=== PATIENT | female | born 1990 | race Caucasian/White ===

== ENCOUNTER 2021-10-22 08:30 | Inpatient (IN) | payer BC ==
[2021-10-23 09:34] VITALS: BMI 50.6
[2021-10-26] MEDS ORDERED: Scopolamine 1.5 mg/72 hour Patch ONE (12:33)
[2021-10-26] MEDS ORDERED: Enoxaparin Sodium 40 MG/0.4 ML SYRINGE ONE (12:35)
[2021-10-26] MEDS ORDERED: Midazolam HCl 2 mg/2 ml Vial ONE (12:35)
[2021-10-26] MEDS ORDERED: Bupivacaine 0.25% 10 ML VIAL ONE (12:44)
[2021-10-26] MEDS ORDERED: Lidocaine 1% w/Epinephrine 1:100K 20 ML VIAL ONE (12:44)
[2021-10-26] MEDS ORDERED: fentaNYL Citrate/PF 100 MCG/2 ML SYRINGE ONE (12:45)
[2021-10-26] MEDS ORDERED: SUGAMMADEX SODIUM 200 MG/2 ML VIAL ONE (12:45)
[2021-10-26] MEDS ORDERED: Sodium Chloride 0.9% 100 ML ONE (12:50)
[2021-10-26] MEDS ORDERED: cefOXitin 2 GM VIAL ONE (12:50)
[2021-10-26] MEDS ORDERED: Ondansetron PF 4 MG/2 ML Vial ONE ×2 (12:57→14:48)
[2021-10-26] MEDS ORDERED: Rocuronium Bromide 10 MG/ML (10ML VIAL) ONE (12:57)
[2021-10-26] MEDS ORDERED: PROPOFOL 200 MG/20 ML VIAL ONE (12:57)
[2021-10-26] MEDS ORDERED: Dexamethasone 20 MG/5 ML VIAL ONE (12:57)
[2021-10-26] MEDS ORDERED: Lidocaine 1% PF 5 ML VIAL ONE (12:57)
[2021-10-26] MEDS ORDERED: Ketorolac Tromethamine 30 MG/ML VIAL ONE (12:57)
[2021-10-26] MEDS ORDERED: Dextrose 50% Abboject 50 ML SYRINGE SLOW IVP PRN (14:27)
[2021-10-26] MEDS ORDERED: diphenhydrAMINE 50 MG/ML VIAL IVP PRN (14:27)
[2021-10-26] MEDS ORDERED: Morphine 2 MG/ML VIAL SLOW IVP PRN (14:27)
[2021-10-26] MEDS ORDERED: Dextrose 5% in Water 1,000 ML IV PRN (14:27)
[2021-10-26] MEDS ORDERED: Promethazine HCl 25 MG/ML VIAL IM PRN ×2 (14:27→14:42)
[2021-10-26] MEDS ORDERED: hydrALAZINE 20 MG/ML VIAL SLOW IVP PRN (14:27)
[2021-10-26] MEDS ORDERED: HYDROmorphone 2 MG/ML VIAL SLOW IVP PRN (14:42)
[2021-10-26] MEDS ORDERED: Promethazine HCl 25 MG/ML VIAL IVPB PRN (14:42)
[2021-10-26] MEDS ORDERED: Meperidine HCl/PF 25 MG/ML VIAL SLOW IVP PRN (14:42)
[2021-10-26] MEDS ORDERED: Ondansetron HCl/PF 4 MG/2 ML Vial IVP PRN (14:42)
[2021-10-26] MEDS ORDERED: Fentanyl 100 MCG/2 ML VIAL ONE ×2 (14:46→15:49)
[2021-10-26] MEDS ORDERED: Promethazine HCl 25 MG/ML VIAL ONE (15:01)
[2021-10-26] MEDS ORDERED: HYDROmorphone 0.5 MG/0.5 ML SYRINGE ONE ×3 (15:07→15:35)
[2021-10-26] MEDS ORDERED: Metoclopramide HCl 10 MG/2 ML VIAL ONE (15:14)
[2021-10-26] MEDS: Ketorolac Tromethamine 30 MG/ML VIAL IVP SCH ×2 (17:24→23:06)
[2021-10-26] MEDS: D5 1/2 NS w/20 mEq KCL 1,000 ML IV SCH (17:26)
[2021-10-26] MEDS: Ondansetron PF 4 MG/2 ML Vial IVP PRN (17:28)
[2021-10-26] MEDS: Hydrocodone-Acetamin 15 ML UDCUP PO PRN ×2 (18:42→20:23)
[2021-10-27] MEDS: D5 1/2 NS w/20 mEq KCL 1,000 ML IV SCH ×2 (00:25→06:53)
[2021-10-27] MEDS: Hydrocodone-Acetamin 15 ML UDCUP PO PRN ×2 (04:34→08:26)
[2021-10-27] MEDS: Ondansetron PF 4 MG/2 ML Vial IVP PRN (04:41)
[2021-10-27 05:59] LABS: #Lymphocytes 1.5 thou/uL (1.20-3.40); #Neutrophils 15.6 thou/uL (1.40-6.50); %Basophils 0.1 % (0.0-1.0); %Lymphocytes 8.2 % (21.0-51.0); %Monocytes 5.4 % (0.0-10.0); %Neutrophils 86.3 % (42.0-75.0); Hemoglobin 13.4 g/dL (12.0-16.0); Mean Corpuscular HGB CONC 32.9 g/dL (32.0-36.0); Mean Corpuscular Hemoglobin 29.1 pg (27.0-31.0); Mean Corpuscular Volume 88.3 fL (78.0-98.0); Mean Platelet Volume 7.8 fL (7.4-10.4); Platelet Count 321 thou/uL (130-400); RBC Distribution Width 11.6 % (11.5-14.5); Red Blood Cell (RBC) Count 4.62 mill/uL (4.20-5.40); White Blood Cell (WBC) Count 18.1 thou/uL (4.8-10.8)
[2021-10-27] MEDS: Ketorolac Tromethamine 30 MG/ML VIAL IVP SCH ×2 (06:02→10:54)
[2021-10-27 06:25] LABS: Anion Gap 13 mmol/L (10-20); BUN (Urea Nitrogen) 9 mg/dL (7.0-18.7); Calc. Creatinine Clearance 235 mL/min (70-130); Calcium 8.6 mg/dL (7.8-10.44); Carbon Dioxide 20 mmol/L (22-29); Chloride 106 mmol/L (98-107); Glucose 124 mg/dL (70-105); Potassium 4.1 mmol/L (3.5-5.1); Sodium 135 mmol/L (136-145)
[2021-10-27] MEDS ORDERED: Enoxaparin Sodium 40 MG/0.4 ML SYRINGE SC SCH (09:00)
[2021-10-27] MEDS ORDERED: Pantoprazole 40 MG VIAL IVP SCH (09:00)
[2021-10-27 12:53] VITALS: BP 120/83; TEMP 98.2
== END 2021-10-27 12:59 | disposition home or self-care (01) | DRG 621 ==
LOC: SURG A 10-26 11:06 → SURG B 10-26 16:41
PROVIDERS: ADMIT Surgery; ATTEND Surgery
PROC: 0DB64Z3 Excision of Stomach, Percutaneous Endoscopic Approach, Vertical (ICD-10-PCS; principal; 2021-10-26)
PROC: 8E0W4CZ Robotic Assisted Procedure of Trunk Region, Percutaneous Endoscopic Approach (ICD-10-PCS; 2021-10-26)
DX: E66.01 Morbid (severe) obesity due to excess calories (principal); Z20.822 Contact with and (suspected) exposure to COVID-19; Z68.43 Body mass index [BMI] 50.0-59.9, adult; Z88.0 Allergy status to penicillin
CPT/HCPCS: 36415; 80048; 85025; 88307; 94760; C9113; J0694; J1100; J1170; J1650; J1885; J2250; J2270; J2405; J2550; J2704; J2765; J3010; J3480; J3490; S0020

== ENCOUNTER 2021-10-22 09:55 | Outpatient (CLI) | payer BC ==
[2021-10-22 23:14] LABS: SARS-CoV-2 PCR by NAA Not Detected (NotDetected)
== END 2021-10-22 09:56 | disposition home or self-care (01) ==
LOC: LABBT 09:55
PROVIDERS: ATTEND Surgery
DX: Z01.812 Encounter for preprocedural laboratory examination (principal); E66.01 Morbid (severe) obesity due to excess calories; Z68.43 Body mass index [BMI] 50.0-59.9, adult; Z20.822 Contact with and (suspected) exposure to COVID-19
CPT/HCPCS: U0003; U0005

== ENCOUNTER 2022-03-22 11:30 | Outpatient (CLI) | payer BC | END 2022-03-22 11:31 | disposition home or self-care (01) | LOC: NM 11:30 | PROVIDERS: ATTEND Urology | DX: N13.70 Vesicoureteral-reflux, unspecified (principal); Q62.5 Duplication of ureter; Z98.890 Other specified postprocedural states | CPT/HCPCS: 78708; A4641; A9562 ==

== ENCOUNTER 2023-02-15 20:30 | Observation (INO) | payer BC ==
[2023-02-15] MEDS ORDERED: Ondansetron PF 4 MG/2 ML Vial ONE ×2 (20:48→22:47)
[2023-02-15] MEDS ORDERED: Morphine 4 MG/ML VIAL ONE (20:48)
[2023-02-15 20:53] LABS: #Eosinphils 0.2 thou/uL (0.0-0.7); #Monocytes 0.7 thou/uL (0.11-0.59); #Neutrophils 6.9 thou/uL (1.40-6.50); %Basophils 0.3 % (0.0-1.0); %Eosinophils 1.3 % (0.0-10.0); %Lymphocytes 29.8 % (21.0-51.0); %Monocytes 6.6 % (0.0-10.0); %Neutrophils 61.8 % (42.0-75.0); Hematocrit 41.9 % (36.0-47.0); Hemoglobin 13.8 g/dL (12.0-16.0); Mean Corpuscular HGB CONC 32.9 g/dL (32.0-36.0); Mean Corpuscular Hemoglobin 29.1 pg (27.0-31.0); Mean Corpuscular Volume 88.2 fl (78.0-98.0); Mean Platelet Volume 10.6 fL (7.4-10.4); Platelet Count 238 10x3/uL (130-400); RBC Distribution Width 12.1 % (11.5-14.5); Red Blood Cell (RBC) Count 4.75 mill/uL (4.20-5.40); White Blood Cell (WBC) Count 11.2 10x3/uL (4.8-10.8)
[2023-02-15 21:22] LABS: BHCG - Serum Negative (NEGATIVE); Pregs Control Background? CLEAR/WHITE (CLR/WHITE); Pregs Control Bar Appear? YES (CONTROL BAR)
[2023-02-15 21:27] LABS: AST (SGOT) 129 U/L (5-34); Anion Gap 6 mmol/L (10-20); Bilirubin, Total 0.5 mg/dL (0.2-1.2); Calc. Creatinine Clearance 0 mL/min (70-130); Calcium 9.4 mg/dL (7.8-10.44); Carbon Dioxide 25 mmol/L (22-29); Chloride 110 mmol/L (98-107); Estimated GFR 111; Potassium 3.8 mmol/L (3.5-5.1); Sodium 137 mmol/L (136-145)
[2023-02-15 21:44] LABS: Albumin 4.4 g/dL (3.5-5.0)
[2023-02-15 21:46] LABS: Glucose 91 mg/dL (70-105)
[2023-02-15 21:49] LABS: Alkaline Phosphatase 89 U/L (40-110)
[2023-02-15 21:51] LABS: BUN (Urea Nitrogen) 23 mg/dL (7.0-18.7)
[2023-02-15 21:52] LABS: ALT (SGPT) 86 U/L (8-55)
[2023-02-15 21:53] LABS: Lipase 60 U/L (8-78)
[2023-02-15] MEDS ORDERED: Ketorolac Tromethamine 30 MG/ML VIAL IVP PRN (22:19)
[2023-02-15] MEDS ORDERED: Morphine 4 MG/ML VIAL SLOW IVP PRN (22:19)
[2023-02-15] MEDS ORDERED: Acetaminophen 325 MG TAB PO PRN (22:30)
[2023-02-15] MEDS ORDERED: Ondansetron ODT 4 MG TAB SL PRN (22:30)
[2023-02-15] MEDS ORDERED: Ondansetron PF 4 MG/2 ML Vial IVP PRN (22:30)
[2023-02-15] MEDS ORDERED: Piperacillin/Tazobactam 4.5 GM VIAL ONE (22:40)
[2023-02-15 22:58] LABS: Globulin 3.1 g/dL (2.4-3.5); Protein, Total 7.5 g/dL (6.0-8.3)
[2023-02-15 23:58] VITALS: BMI 29.4
[2023-02-16] MEDS: Sodium Chloride 0.9% 1,000 ML IV SCH ×2 (00:08→06:36)
[2023-02-16] MEDS ORDERED: EPINEPHrine 1 MG/ML AMP ONE (06:32)
[2023-02-16] MEDS ORDERED: Bupivacaine PF 0.5% 30 ML VIAL ONE (06:32)
[2023-02-16] MEDS ORDERED: Iopamidol 30 ML ONE (06:36)
[2023-02-16] MEDS ORDERED: Midazolam HCl 2 mg/2 ml Vial ONE (06:57)
[2023-02-16] MEDS ORDERED: fentaNYL 50 mcg/mL 1 mL Vial ONE (06:57)
[2023-02-16] MEDS ORDERED: Sodium Chloride 0.9% 100 ML ONE (07:04)
[2023-02-16] MEDS ORDERED: CEFAZOLIN 2 GM VIAL ONE (07:04)
[2023-02-16] MEDS ORDERED: Scopolamine 1.5 mg/72 hour Patch ONE (07:13)
[2023-02-16] MEDS ORDERED: Ondansetron PF 4 MG/2 ML Vial IVP PRN (07:16)
[2023-02-16] MEDS ORDERED: Morphine 4 MG/ML VIAL SLOW IVP PRN (07:16)
[2023-02-16] MEDS ORDERED: HYDROcodone/Acetaminophen 10/325 mg Tablet PO PRN (07:16)
[2023-02-16] MEDS ORDERED: Morphine 2 MG/ML VIAL SLOW IVP PRN (07:16)
[2023-02-16] MEDS ORDERED: Promethazine HCl 25 MG/ML VIAL IM PRN (07:16)
[2023-02-16] MEDS ORDERED: Lidocaine 1% PF 5 ML VIAL ONE (07:20)
[2023-02-16] MEDS ORDERED: Ketorolac Tromethamine 30 MG/ML VIAL ONE (07:20)
[2023-02-16] MEDS ORDERED: Ondansetron PF 4 MG/2 ML Vial ONE (07:20)
[2023-02-16] MEDS ORDERED: Rocuronium Bromide 10 MG/ML (10ML VIAL) ONE (07:20)
[2023-02-16] MEDS ORDERED: PROPOFOL 200 MG/20 ML VIAL ONE (07:20)
[2023-02-16] MEDS ORDERED: Dexamethasone 20 MG/5 ML VIAL ONE (07:20)
[2023-02-16] MEDS ORDERED: D5 1/2 NS w/20 mEq KCL 1,000 ML IV SCH (07:30)
[2023-02-16] MEDS ORDERED: SUGAMMADEX SODIUM 200 MG/2 ML VIAL ONE (08:02)
[2023-02-16] MEDS ORDERED: Meperidine HCl/PF 25 MG/ML VIAL ONE (08:51)
[2023-02-16] MEDS ORDERED: Promethazine HCl 25 MG/ML VIAL ONE (08:57)
[2023-02-16] MEDS ORDERED: Famotidine/PF 20 mg/2ml Vial SLOW IVP SCH (09:00)
[2023-02-16] MEDS ORDERED: HYDROmorphone 0.5 MG/0.5 ML SYRINGE ONE (09:18)
[2023-02-16] MEDS ORDERED: diphenhydrAMINE 50 MG/ML VIAL ONE (09:40)
[2023-02-16] MEDS ORDERED: Ketorolac Tromethamine 30 MG/ML VIAL IVP SCH (12:00)
[2023-02-16 12:04] LABS: #Monocytes 0.1 thou/uL (0.11-0.59); #Neutrophils 8.6 thou/uL (1.40-6.50); %Basophils 0.1 % (0.0-1.0); %Lymphocytes 5.8 % (21.0-51.0); %Monocytes 1.4 % (0.0-10.0); %Neutrophils 92.4 % (42.0-75.0); Hematocrit 38.9 % (36.0-47.0); Hemoglobin 12.7 g/dL (12.0-16.0); Mean Corpuscular HGB CONC 32.6 g/dL (32.0-36.0); Mean Corpuscular Hemoglobin 29.1 pg (27.0-31.0); Platelet Count 192 10x3/uL (130-400); RBC Distribution Width 12.2 % (11.5-14.5); Red Blood Cell (RBC) Count 4.37 mill/uL (4.20-5.40); White Blood Cell (WBC) Count 9.3 10x3/uL (4.8-10.8)
[2023-02-16 12:31] LABS: ALT (SGPT) 200 U/L (8-55); AST (SGOT) 131 U/L (5-34); Albumin 3.8 g/dL (3.5-5.0); Alkaline Phosphatase 87 U/L (40-110); Anion Gap 10 mmol/L (10-20); BUN (Urea Nitrogen) 15 mg/dL (7.0-18.7); Bilirubin, Total 0.6 mg/dL (0.2-1.2); Calc. Creatinine Clearance 142 mL/min (70-130); Calcium 8.8 mg/dL (7.8-10.44); Carbon Dioxide 21 mmol/L (22-29); Chloride 110 mmol/L (98-107); Estimated GFR 113; Globulin 2.6 g/dL (2.4-3.5); Glucose 120 mg/dL (70-105); Potassium 4.1 mmol/L (3.5-5.1); Protein, Total 6.4 g/dL (6.0-8.3); Sodium 137 mmol/L (136-145)
[2023-02-16 13:25] VITALS: BP 115/46; TEMP 98.1
== END 2023-02-16 14:30 | disposition home or self-care (01) ==
LOC: ERS 20:30 → INTOOBSV 22:13 → SURG B 22:13
PROVIDERS: ADMIT Surgery; ATTEND Surgery
PROC: 0FT44ZZ Resection of Gallbladder, Percutaneous Endoscopic Approach (ICD-10-PCS; principal; 2023-02-16)
PROC: BF03YZZ Plain Radiography of Gallbladder and Bile Ducts using Other Contrast (ICD-10-PCS; 2023-02-16)
DX: K80.12 Calculus of gallbladder with acute and chronic cholecystitis without obstruction (principal); K21.9 Gastro-esophageal reflux disease without esophagitis; E11.9 Type 2 diabetes mellitus without complications; Z88.0 Allergy status to penicillin; Z79.899 Other long term (current) drug therapy
CPT/HCPCS: 36415; 47532; 76705; 80053; 83690; 84703; 85025; 88304; 96361; 96374; 96375; 96376; C1889; J0171; J1100; J1170; J1200; J1885; J2175; J2250; J2270; J2405; J2543; J2550; J2704; J3010; J3490; J7050; Q9967; S0020

== ENCOUNTER 2023-05-24 09:57 | Outpatient (CLI) | payer BC | END 2023-05-24 09:58 | disposition home or self-care (01) | LOC: BICMRI 09:57 | PROVIDERS: ATTEND Pediatrics | DX: M22.2X1 Patellofemoral disorders, right knee (principal) ==